=== PATIENT | female | born 1965 | race Caucasian/White ===

== ENCOUNTER → 2019-01-29 | Outpatient (CLI) | payer OTHER ==
--- NOTE | 2019-01-29 09:44 | MR ---
EXAMINATION TYPE: MR brain/orbits wo/w con DATE OF EXAM: 01/29/2019 COMPARISON: CT brain January 27, 2012. HISTORY: Blurred vision right eye /Visual disturbance per order. Patient also complains of right-side d hearing loss on the MRI questionnaire TECHNIQUE: Multiplanar, multisequence images of the brain and brainstem as well as orbits are all performed with out and with IV contrast, utilizing 4 mL intravenous Gadavist . FINDINGS: Diffusion weighted images demonstrate no evidence of a recent infarct or other diffusion ab normality. There is no extra-axial fluid collection or significant white matter signal abnormality. The ventricular system and cisternal spaces are normal in size and appearance. The brain volume is age appropriate. Midline structures demonstrate somewhat empty sella morphology. The craniocervical junction appears within normal limits. Post contrast images demonstrate no abnormal enhancement. The dural venous sin uses appear patent. Nasal septum is deviated to right of midline. Visualized paranasal sinuses are gr ossly clear. No suspicious fluid signal bilateral mastoid air cell level. The globes appear intact bilaterally. Rectus muscles are symmetric and felt within normal limits. The re is symmetric mild enhancement of the optic nerve sheath seen best coronal images without suspiciou s thickening presumed within normal limits. Intraconal fat is preserved without suspicious mass. Supr asellar cistern is not effaced. Optic chiasm is intact. IMPRESSION: No obvious findings to account for patient's symptoms of right-sided blurred vision.
== END | disposition home or self-care (01) ==
LOC: RADMRIMAIN 07:47
PROVIDERS: ATTEND Ophthalmology
DX: H53.19 Other subjective visual disturbances (principal)
CPT/HCPCS: 70543; 70553; A9585

== ENCOUNTER 2019-07-08 10:04 | Emergency (ER) | payer OTHER ==
[2019-07-08 10:14] VITALS: TEMP 98.1
[2019-07-08] MEDS ORDERED: SODIUM CHLORIDE 0.9% 1,000 ML IV STA (10:20)
--- NOTE | 2019-07-08 10:38 | ED ---
General Adult HPI - General Chief complaint: Syncope Stated complaint: Syncopal episode Time Seen by Provider: 07/08/19 10:06 Source: patient, EMS Mode of arrival: EMS Limitations: no limitations - History of Present Illness Initial comments: Patient is a 53-year-old female presenting to the emergency department via EMS after having a syncopal episode at work today. Patient states she remembers feeling lightheaded and was holding on to 2 machines on either side of her when the next thing she knew somebody was holding her on the ground. Patient states she did not hit her head. Witnesses confirm this. Patient states she has had a syncopal episode in the past but many years ago. She did eat a poptart this morning which is pretty typical for her. Patient states she has not been feeling ill lately. She denies chest pain, shortness of breath, abdominal pain. She states her only complaint is feeling like her head "feels like 50 pounds." She has no other complaints at this time. Patient states she has no pertinent past medical history. She does admit to smoking a half a pack a day. No alcohol or other drug use. Prior to arrival in the EMS, blood sugar was 106, rest of vitals normal. Vitals upon arrival to ER, are stable. - Related Data Home Medications Medication Instructions Recorded Confirmed Cholecalciferol [Vitamin D3 (25 1,000 unit PO DAILY 07/08/19 07/08/19 Mcg = 1000 Iu)] Nicotine 21Mg/24Hr Patch [Habitrol] 1 patch TRANSDERM DAILY 07/08/19 07/08/19 Allergies Allergy/AdvReac Type Severity Reaction Status Date / Time No Known Allergies Allergy Verified 07/08/19 11:04 Review of Systems ROS Statement: Those systems with pertinent positive or pertinent negative responses have been documented in the HPI. ROS Other: All systems not noted in ROS Statement are negative. Past Medical History Past Medical History: No Reported History History of Any Multi-Drug Resistant Organisms: None Reported Past Surgical History: Section Additional Past Surgical History / Comment(s): eye Past Psychological History: No Psychological Hx Reported Smoking Status: Current every day smoker Past Alcohol Use History: None Reported Past Drug Use History: None Reported General Exam - General Exam Comments Initial Comments: GENERAL: Well-appearing, well-nourished and in no acute distress. HEAD: Atraumatic, normocephalic. EYES: Pupils equal round and reactive to light, extraocular movements intact, sclera anicteric, conjunctiva are normal. ENT: TMs normal, nares patent, oropharynx clear without exudates. Moist mucous membranes. NECK: Normal range of motion, supple without lymphadenopathy or JVD. LUNGS: Breath sounds clear to auscultation bilaterally and equal. No wheezes rales or rhonchi. HEART: Regular rate and rhythm without murmurs, rubs or gallops. ABDOMEN: Soft, nontender, normoactive bowel sounds. No guarding, no rebound. No masses appreciated. : Deferred EXTREMITIES: Normal range of motion, no pitting or edema. No clubbing or cyanosis. 5 out of 5 strength upper and lower extremities. NEUROLOGICAL: Cranial nerves II through XII grossly intact. Normal speech, normal gait. PSYCH: Normal mood, normal affect. SKIN: Warm, Dry, normal turgor, no rashes or lesions noted. Limitations: no limitations Course Vital Signs 07/08/19 07/08/19 07/08/19 10:05 11:00 12:02 Temperature 98.1 F Pulse Rate 56 L 67 56 L Respiratory 18 16 16 Rate Blood Pressure 134/75 132/75 131/85 O2 Sat by Pulse 100 98 98 Oximetry EKG Findings - EKG Comments: EKG Findings:: Ventricular rate 56, [place] interval 144, QTC 391. Sinus bradycardia otherwise a normal ECG. No acute ST segment changes. Medical Decision Making - Medical Decision Making Patient is a 53-year-old female presenting via EMS for syncopal episode at work today. She did not hit her head. Blood sugar upon arrival was 106. Vital signs are stable. No pertinent past medical history. Patient has no complaints today. Exam is unremarkable. EKG shows no acute findings. Lab work is unremarkable, troponin is normal. Urine shows no signs of infection or dehydration. Chest x-ray is normal. I discussed these findings with the patient. Case was reviewed with Dr. Estrada who consulted with Dr. Bridges. Dr. Bridges wished to keep patient for observation. I discussed this with the patient however patient is refusing to stay. She states she will follow-up with Dr. Bridges outpatient. I discussed the risks associated with leaving AMA and she still wishes to leave. - Lab Data Result diagrams: 07/08/19 10:16 07/08/19 10:16 Lab Results 07/08/19 07/08/19 07/08/19 Range/Units 10:16 10:16 10:16 WBC 7.4 (3.8-10.6) k/uL RBC 4.04 (3.80-5.40) m/uL Hgb 12.4 (11.4-16.0) gm/dL Hct 38.6 (34.0-46.0) % MCV 95.7 (80.0-100.0) fL MCH 30.8 (25.0-35.0) pg MCHC 32.2 (31.0-37.0) g/dL RDW 12.4 (11.5-15.5) % Plt Count 280 (150-450) k/uL Neutrophils % 63 % Lymphocytes % 31 % Monocytes % 3 % Eosinophils % 1 % Basophils % 1 % Neutrophils # 4.7 (1.3-7.7) k/uL Lymphocytes # 2.3 (1.0-4.8) k/uL Monocytes # 0.2 (0-1.0) k/uL Eosinophils # 0.1 (0-0.7) k/uL Basophils # 0.0 (0-0.2) k/uL PT 10.4 (9.0-12.0) sec INR 1.0 (<1.2) APTT 25.1 (22.0-30.0) sec Sodium 140 (137-145) mmol/L Potassium 3.6 (3.5-5.1) mmol/L Chloride 109 H (98-107) mmol/L Carbon Dioxide 23 (22-30) mmol/L Anion Gap 8 mmol/L BUN 12 (7-17) mg/dL Creatinine 0.56 (0.52-1.04) mg/dL Est GFR (CKD-EPI)AfAm >90 (>60 ml/min/1.73 sqM) Est GFR (CKD-EPI)NonAf >90 (>60 ml/min/1.73 sqM) Glucose 86 (74-99) mg/dL Calcium 9.3 (8.4-10.2) mg/dL Total Bilirubin 0.2 (0.2-1.3) mg/dL AST 22 (14-36) U/L ALT 10 (4-34) U/L Alkaline Phosphatase 71 (38-126) U/L Troponin I (0.000-0.034) ng/mL Total Protein 6.5 (6.3-8.2) g/dL Albumin 3.9 (3.5-5.0) g/dL Urine Color Urine Appearance (Clear) Urine pH (5.0-8.0) Ur Specific Colstrip (1.001-1.035) Urine Protein (Negative) Urine Glucose (UA) (Negative) Urine Ketones (Negative) Urine Blood (Negative) Urine Nitrite (Negative) Urine Bilirubin (Negative) Urine Urobilinogen (<2.0) mg/dL Ur Leukocyte Esterase (Negative) Urine RBC (0-5) /hpf Urine WBC (0-5) /hpf Ur Squamous Epith Cells (0-4) /hpf Urine Bacteria (None) /hpf 07/08/19 07/08/19 Range/Units 10:16 12:03 WBC (3.8-10.6) k/uL RBC (3.80-5.40) m/uL Hgb (11.4-16.0) gm/dL Hct (34.0-46.0) % MCV (80.0-100.0) fL MCH (25.0-35.0) pg MCHC (31.0-37.0) g/dL RDW (11.5-15.5) % Plt Count (150-450) k/uL Neutrophils % % Lymphocytes % % Monocytes % % Eosinophils % % Basophils % % Neutrophils # (1.3-7.7) k/uL Lymphocytes # (1.0-4.8) k/uL Monocytes # (0-1.0) k/uL Eosinophils # (0-0.7) k/uL Basophils # (0-0.2) k/uL PT (9.0-12.0) sec INR (<1.2) APTT (22.0-30.0) sec Sodium (137-145) mmol/L Potassium (3.5-5.1) mmol/L Chloride (98-107) mmol/L Carbon Dioxide (22-30) mmol/L Anion Gap mmol/L BUN (7-17) mg/dL Creatinine (0.52-1.04) mg/dL Est GFR (CKD-EPI)AfAm (>60 ml/min/1.73 sqM) Est GFR (CKD-EPI)NonAf (>60 ml/min/1.73 sqM) Glucose (74-99) mg/dL Calcium (8.4-10.2) mg/dL Total Bilirubin (0.2-1.3) mg/dL AST (14-36) U/L ALT (4-34) U/L Alkaline Phosphatase (38-126) U/L Troponin I <0.012 (0.000-0.034) ng/mL Total Protein (6.3-8.2) g/dL Albumin (3.5-5.0) g/dL Urine Color Colorless Urine Appearance Clear (Clear) Urine pH 7.0 (5.0-8.0) Ur Specific Colstrip 1.006 (1.001-1.035) Urine Protein Negative (Negative) Urine Glucose (UA) Negative (Negative) Urine Ketones Negative (Negative) Urine Blood Negative (Negative) Urine Nitrite Negative (Negative) Urine Bilirubin Negative (Negative) Urine Urobilinogen <2.0 (<2.0) mg/dL Ur Leukocyte Esterase Trace H (Negative) Urine RBC 1 (0-5) /hpf Urine WBC 1 (0-5) /hpf Ur Squamous Epith Cells 1 (0-4) /hpf Urine Bacteria Rare H (None) /hpf Disposition Clinical Impression: Syncope Disposition: Left Against Medical Advice Condition: Stable Referrals: Bharat Bridges MD [Primary Care Provider] - 1-2 days
--- NOTE | 2019-07-08 10:38 | XR ---
EXAMINATION TYPE: XR chest 2V DATE OF EXAM: 07/08/2019 COMPARISON: 01/27/2012 HISTORY: Shortness of breath TECHNIQUE: Frontal and lateral views of the chest are obtained. FINDINGS: Scattered senescent parenchymal changes noted. Hyperinflation compatible with COPD. No evidence for infiltrate. No evidence for atelectasis. Heart size is stable. Mediastinal structures are stable and grossly unremarkable. No evidence for hilar prominence. Degenerative changes dorsal spine. IMPRESSION: 1. No evidence for acute pulmonary disease.
[2019-07-08 10:40] LABS: Basophils % (A) 1 %; Eosinophils # (A) 0.1 k/uL (0-0.7); Eosinophils % (A) 1 %; HCT 38.6 % (34.0-46.0); HGB 12.4 gm/dL (11.4-16.0); Lymphocytes # (A) 2.3 k/uL (1.0-4.8); Lymphocytes % (A) 31 %; MCH 30.8 pg (25.0-35.0); MCHC 32.2 g/dL (31.0-37.0); MCV 95.7 fL (80.0-100.0); Mean Platelet Volume 7.6; Monocytes # (A) 0.2 k/uL (0-1.0); Monocytes % (A) 3 %; Neutrophils # (A) 4.7 k/uL (1.3-7.7); Neutrophils % (A) 63 %; Platelet Count 280 k/uL (150-450); RBC 4.04 m/uL (3.80-5.40); RDW 12.4 % (11.5-15.5); WBC 7.4 k/uL (3.8-10.6)
[2019-07-08 10:53] LABS: ALT 10 U/L (4-34); AST 22 U/L (14-36); African American GFR (CKD) >90 (>60 ml/min/1.73 sqM); Albumin 3.9 g/dL (3.5-5.0); Alkaline Phosphatase 71 U/L (38-126); Anion Gap 8 mmol/L; Blood Urea Nitrogen 12 mg/dL (7-17); Calcium 9.3 mg/dL (8.4-10.2); Carbon Dioxide 23 mmol/L (22-30); Chloride 109 mmol/L (98-107); Glucose 86 mg/dL (74-99); Non-African American GFR(CKD) >90 (>60 ml/min/1.73 sqM); Potassium 3.6 mmol/L (3.5-5.1); Sodium 140 mmol/L (137-145); Total Bilirubin 0.2 mg/dL (0.2-1.3); Total Protein 6.5 g/dL (6.3-8.2)
[2019-07-08 10:59] LABS: Partial Thromboplastin Time 25.1 sec (22.0-30.0); Prothrombin Time 10.4 sec (9.0-12.0)
[2019-07-08 12:27] LABS: Appearance,Urine Clear (Clear); Bacteria,Urine Rare /hpf; Bilirubin,Urine Negative (Negative); Blood,Urine Negative (Negative); Color,Urine Colorless; Glucose,Urine (UA) Negative (Negative); Ketones,Urine Negative (Negative); Leukocyte Esterase,Urine Trace (Negative); Nitrite,Urine Negative (Negative); Protein,Urine Negative (Negative); RBC,Urine 1 /hpf (0-5); Specific Gravity,Urine 1.006 (1.001-1.035); Squamous Epithelial Cell,Urine 1 /hpf (0-4); Urobilinogen,Urine <2.0 mg/dL (<2.0); WBC,Urine 1 /hpf (0-5)
[2019-07-08 13:17] VITALS: BP 128/72; PULSE 72; RESP 18
--- NOTE | 2019-07-09 12:24 | HP ---
HISTORY AND PHYSICAL She was admitted through the emergency room and then signed out. CHIEF COMPLAINT: Syncope. HISTORY OF PRESENT ILLNESS: This lady apparently is brought to the emergency room after she passed out at work. There are no other details known. She underwent a workup and evaluation in the emergency room. It was determined that she should be admitted overnight for observation and further testing. Review of systems, past medical history, family history, personal and social histories were not obtained. The only other details are those contained in the emergency room note. Physical exam was not performed because she left before she was seen. Physical exam details are in her emergency room note. IMPRESSION: Syncope, etiology unknown. PLAN: Bed rest and IV fluids, telemetry, and further neurologic and cardiac evaluation. MMODL / IJN: [id number] /
--- NOTE | 2019-07-09 12:30 | DS ---
DISCHARGE SUMMARY CHIEF COMPLAINT: Syncope. HISTORY OF PRESENT ILLNESS: This lady was admitted through the emergency room for a syncopal episode at work. She signed out shortly after she was admitted and there were no laboratory studies, consult, or any other management or treatment rendered. She signed AMA. Our office will try to contact her. FINAL DIAGNOSIS: Syncopal episode, etiology unknown. OPERATIONS: None. CONSULTATIONS: None. She left AMA. MMODL / IJN: [id number] /
== END 2019-07-08 13:15 | disposition left against medical advice (07) ==
LOC: EC 10:04
DX: R55 Syncope and collapse (principal); F17.210 Nicotine dependence, cigarettes, uncomplicated; Z79.899 Other long term (current) drug therapy; Z53.20 Procedure and treatment not carried out because of patient's decision for unspecified reasons
CPT/HCPCS: 36415; 71046; 80053; 81001; 84484; 85025; 85610; 85730; 93005; 96360; 99284

== ENCOUNTER → 2021-02-15 | Outpatient (CLI) | payer OTHER ==
--- NOTE | 2021-02-16 08:14 | XR ---
EXAMINATION TYPE: XR cervical spine limited, 3 views DATE OF EXAM: 02/15/2021 Comparison: None Clinical History: 55-year-old female pain and limited movement, M99.01, M54.2 Findings: No predental space widening or prevertebral soft tissue swelling. Mild degenerative disc disease C5-C 7 levels. Hypertrophic facet and uncovertebral joint arthropathy lower cervical spine. Grade 1 jj listhesis C7-T1. Remaining alignment is maintained. Very limited odontoid view. Impression: Mild degenerative disc disease C5-C7 levels. Prominent hypertrophic facet and uncovertebral joint art hropathy mid to lower cervical spine with degenerative grade 1 anterolisthesis C7-T1.
== END | disposition home or self-care (01) ==
LOC: RADXRMAIN 17:33
PROVIDERS: ATTEND Chiropractor
DX: M50.323 Other cervical disc degeneration at C6-C7 level (principal); M43.13 Spondylolisthesis, cervicothoracic region; M47.812 Spondylosis without myelopathy or radiculopathy, cervical region
CPT/HCPCS: 72040